=== PATIENT | female | born 1930 | race Caucasian/White ===

== ENCOUNTER → 2019-05-25 | Outpatient (CLI) | payer MEDICARE ==
--- NOTE | 2019-05-25 14:47 | PCVCIMAG ---
APPROVED REPORT Study performed: 05/25/2019 13:00:58 EXAM: Comprehensive 2D, Doppler, and color-flow Echocardiogram Patient Location: Echo lab Status: routine BSA: 1.60 HR: 74 bpmBP: 170/100 mmHg Rhythm: NSR Other Information Study Quality: Technically Difficult Indications Hypertension/HDD Hyperlipidemia, Parkinson's Disease 2D Dimensions IVSd: 8.19 (7-11mm)LVOT Diam: 15.68 (18-24mm) LVDd: 34.21 mm PWd: 8.83 (7-11mm)Ascending Ao: 27.90 (22-36mm) LVDs: 28.55 (25-40mm) Left Atrium: 42.34 (27-40mm) Aortic Root: 25.36 mm LV Single Plane 4CH: 51.11 % LV Single Plane 2CH: 52.63 % Volumes Left Atrial Volume (Systole) Single Plane 4CH: 57.61 mLSingle Plane 2CH: 46.14 mL LA ESV Index: 33.00 mL/m2 Aortic Valve AoV Peak Tano.: 1.07 m/s AO Peak Gr.: 4.57 mmHgLVOT Max P.93 mmHg LVOT Max V: 0.86 m/s EYN Vmax: 1.54 cm2 Mitral Valve E/A Ratio: 0.8 MV Decel. Time: 125.86 ms MV E Max Tano.: 0.80 m/s MV A Tano.: 0.95 m/s TDI E/Lateral E': 13.33E/Medial E': 13.33 Medial E' Tano.: 0.06 m/s Lateral E' Tano.: 0.06 m/s Pulmonary Vein P Vein S: 0.42 m/sP Vein A: 0.26 m/s P Vein D: 0.32 m/sP Vein A Dur.: 79.6 msec P Vein S/D Ratio: 1.31 Left Ventricle The left ventricle is normal size. There is normal LV segmental wall motion. There is normal left ventricular wall thickness. Left ventricular systolic function is normal. The left ventricular ejection fraction is within the normal range. LVEF is >55%. Right Ventricle The right ventricle is normal size. The right ventricular systolic function is normal. Atria The left atrium size is normal. The right atrium size is normal. Aortic Valve The aortic valve is normal in structure. Trace aortic regurgitation. There is no aortic valvular stenosis. Mitral Valve Mild mitral annular calcification. Mild mitral regurgitation. No evidence of mitral valve stenosis. Tricuspid Valve The tricuspid valve is normal in structure. There is no tricuspid valve regurgitation noted. Pulmonic Valve The pulmonary valve is normal in structure. There is no pulmonic valvular regurgitation. Great Vessels The aortic root is normal in size. IVC is normal in size and collapses >50% with inspiration. Pericardium There is no pericardial effusion. <Conclusion> The left ventricle is normal size. LVEF is >55%. The right ventricle is normal size. The left atrium size is normal. The aortic valve is normal in structure. Trace aortic regurgitation. Mild mitral regurgitation. There is no tricuspid valve regurgitation noted. The aortic root is normal in size. There is no pericardial effusion.
== END | disposition home or self-care (01) ==
LOC: PCVCIMAG 14:00
PROVIDERS: ATTEND Internal Medicine Cardiovascular Disease
DX: I34.0 Nonrheumatic mitral (valve) insufficiency (principal); I10 Essential (primary) hypertension; E78.5 Hyperlipidemia, unspecified; G20 Parkinson's disease
CPT/HCPCS: 36415; 80061; 93005; 93306; G0463